=== PATIENT | female | born 2000 | race Caucasian/White ===

== ENCOUNTER 2020-11-18 11:39 | Emergency (ER) | payer SELFPAY ==
[~2020-11-18] VITALS: Ht 160 cm; Wt 56.8 kg
[2020-11-18 11:45] VITALS: BP 134/90; TEMP 98.1
[2020-11-18] MEDS ORDERED: LARIN PO (11:52)
[2020-11-18] MEDS ORDERED: PRISTIQ 50 MG T50 MG PO (11:52)
[2020-11-18] MEDS ORDERED: AMOXICILLIN 8751 TAB PO (11:58)
[2020-11-18 12:15] VITALS: PULSE 89
== END 2020-11-18 12:20 | disposition home or self-care (01) ==
LOC: COL.ER 11:39
DX: S61.031A Puncture wound without foreign body of right thumb without damage to nail, initial encounter (principal); W54.0XXA Bitten by dog, initial encounter